=== PATIENT | male | born 2000 | race Caucasian/White ===

== ENCOUNTER 2022-01-22 18:43 | Emergency (ER) | payer SELFPAY ==
[~2022-01-22 18:43] MED LIST: Bacitracin 1 PK ONE
[2022-01-22] MEDS ORDERED: Morphine 4 MG/ML VIAL ONE (19:16)
== END 2022-01-22 22:29 | disposition home or self-care (01) ==
LOC: MADERS 18:43
DX: S60.211A Contusion of right wrist, initial encounter (principal); S70.212A Abrasion, left hip, initial encounter; L03.116 Cellulitis of left lower limb; F17.210 Nicotine dependence, cigarettes, uncomplicated; W18.09XA Striking against other object with subsequent fall, initial encounter
CPT/HCPCS: 96374; J2270

== ENCOUNTER 2022-04-04 05:58 | Emergency (ER) | payer SELFPAY | END 2022-04-04 06:12 | disposition left against medical advice (07) | LOC: MADERS 05:58 | DX: Z53.21 Procedure and treatment not carried out due to patient leaving prior to being seen by health care provider (principal) ==